=== PATIENT | female | born 1985 | race Two or more races ===

== ENCOUNTER 2022-01-16 09:30 | Outpatient (CLI) | payer OTHER | END 2022-01-16 09:59 | disposition home or self-care (01) | LOC: RX STUDY 09:30 | PROVIDERS: ATTEND Obstetrics & Gynecology | DX: N97.1 Female infertility of tubal origin (principal) ==

== ENCOUNTER 2023-04-03 08:43 | Outpatient (CLI) | payer OTHER | END 2023-04-03 08:54 | disposition home or self-care (01) | LOC: SONOGRAMA 08:43 | PROVIDERS: ATTEND Specialist | DX: N85.6 Intrauterine synechiae (principal) ==